=== PATIENT | female | born 1960 | race Caucasian/White ===

== ENCOUNTER 2025-05-16 16:10 | Emergency (ER) | payer BC ==
[~2025-05-16] VITALS: Ht 170.2 cm; Wt 78.5 kg
--- NOTE | 2025-05-16 16:23 | ERN ---
ED Note History of Present Illness Stated Complaint: LACERATION TO LEFT INDEX FINGER Chief Complaint: Laceration/Avulsion Time Seen by MD: 16:15 Dictation: PATIENT IS A 65-YEAR-OLD FEMALE HERE WITH A COMPLAINT OF A LACERATION/PARTIAL AMPUTATION OF HER DISTAL LEFT 2ND FINGER WITH A WEDGE. SHE STATES THE WINCH CHAIN SNAP AND CAUGHT HER FINGER. PALMAR ASPECT OF DISTAL LEFT 2ND FINGER IS COMPLETELY AVULSED OFF WITH FINGERNAIL REMAINING. LAST TETANUS SHOT IS UNKNOWN. SHE DOES NOT HAVE A HISTORY OF ANTIBIOTIC ALLERGIES. NO ACTIVE BLEEDING Allergies: Coded Allergies: No Known Drug Allergies (Unverified Allergy, Unknown, 05/16/25) Past Medical History Past Medical History: No Pertinent History Surgical History: None History: Not Applicable RN Note Reviewed/Agreed w/PFSH: Yes Review of System Dictation CONSTITUTIONAL: NEGATIVE EXCEPT FOR HPI HEAD/FACE: NEGATIVE EXCEPT FOR HPI EENT: NEGATIVE EXCEPT FOR HPI RESPIRATORY: NEGATIVE EXCEPT FOR HPI GASTROINTESTINAL/ABDOMINAL: NEGATIVE EXCEPT FOR HPI GENITOURINARY: NEGATIVE EXCEPT FOR HPI MUSCULOSKELETAL: NEGATIVE EXCEPT FOR HPI PARTIAL AVULSION DISTAL LEFT 2ND FINGER NAIL INTACT INTEGUMENTARY: NEGATIVE EXCEPT FOR HPI NEUROLOGICAL/PSYCH: NEGATIVE EXCEPT FOR HPI HEMATOLOGIC/LYMPHATIC: NEGATIVE EXCEPT FOR HPI ALL SYSTEMS NEGATIVE, EXCEPT NOTED ABOVE. 13 POINT REVIEW OF SYSTEMS ASSESSED AND ALL NEGATIVE EXCEPT FOR ABOVE. Initial Vital Sign VS Vital Signs Date Time Temp Pulse Resp B/P (MAP) Pulse Ox O2 Delivery O2 Flow Rate FiO2 05/16/25 16:11 97.9 66 20 136/68 100 Room Air 05/16/25 16:24 0 21 Physical Exam Dictation VITAL SIGNS REVIEWED GENERAL APPEARANCE: ALERT, ORIENTED X 3, N MODERATE ACUTE DISTRESS, WELL DEVELOPED, NOURISHED. HEAD AND FACE: NON-TRAUMATIC. EYES: PERRL, PINK CONJUNCTIVAS, EYELID NO TRAUMA, ANTERIOR CHAMBER WITH ARCUS SENILIS. EARS: PINNAS INTACT AND NO SIGNS OF TRAUMA OR ERYTHEMA EAR CANALS CLEAR AND NO DISCHARGE TM NO ERYTHEMA NOSE: NO DISCHARGE, NO BLEEDING. OROPHARYNX: MOUTH NORMAL, TONGUE PINK, PHARYNX CLEAR,NO ERYTHEMA, TONSILS NO EXUDATES, NO ABSCESSES NOTED, MUCOUS MEMBRANE MOIST NECK: SUPPLE, NON-TENDER, NO THYROMEGALY, NO MASSES, NO JVD, NO BRUITS BREAST:DEFERRED CHEST:NO TENDERNESS, NO CREPITUS, NO PARADOXICAL MOVEMENT, NO RETRACTIONS LUNGS:CLEAR, WELL-VENTILATED, SYMMETRIC, NO RALES, NO WHEEZING, NO RHONCHI, NO STRIDOR, GOOD BREATH SOUNDS BILATERALLY HEART: REGULAR RATE, REGULAR RHYTHM, NO MURMUR, NO GALLOPS VASCULAR: NO PERIPHERAL EDEMA, ABDOMEN: SOFT, POSITIVE BOWEL SOUNDS, NONDISTENDED, NO GUARDING, NONTENDER, NO REBOUND, NO MASSES NO HEPATOMEGALY, NO SPLENOMEGALY, NO PAREKH'S SIGN, NO HERNIAS. RECTAL: DEFERRED GENITAL: DEFERRED NEUROLOGICAL: NORMAL SPEECH, MOTOR FUNCTION INTACT, SENSORY FUNCTION INTACT MUSCULOSKELETAL: NECK NONTENDER, FULL RANGE OF MOTION, BACK NONTENDER, FULL RANG E OF MOTION, EXTREMITIES, COMPLETE AVULSION OF PAD DISTAL LEFT 2ND FINGER. BONE PARTIALLY EXPOSED HOWEVER NOT INVOLVED INTACT MINIMAL BLEEDING LYMPHATIC: DEFERRED Results (Laboratory/Radiology) Laboratory/Radiology LEFT HAND X-RAY DEMONSTRATES NO BONY INVOLVEMENT Labs Reviewed?: Yes ED Course ED Course Orders Procedure Category Date Status Time Hand 3+Vws Lt RAD 05/16/25 Taken 16:18 Saline Lock Iv CPOE 05/16/25 Transmitted 16:18 Cefazolin Sodium PHA 05/16/25 In Process (Ancef) 16:18 Neomy PHA 05/16/25 In Process Sulf/Bacitra/Polymyxin 16:30 Tetanus,Diphtheria PHA 05/16/25 Complete Tox [Adult] (Diphther 16:30 Ketorolac PHA 05/16/25 In Process Tromethamine 30mg/Ml 16:30 Morphine 2mg Syg PHA 05/16/25 Complete (Morphine 2mg Syg) 16:30 Ondansetron 4mg Inj PHA 05/16/25 In Process (Zofran 4mg Inj) 16:30 Lidocaine Hcl 1% 20ml PHA 05/16/25 In Process Vial (Lidocaine Hc 16:30 Morphine 4mg Syg PHA 05/16/25 In Process (Morphine 4mg Syg) 17:00 Current Medications Medications (Trade) Dose Ordered Sig/Balaji Route PRN Reason Start Time Stop Time Status Last Admin Dose Admin Cefazolin Sodium (Ancef) 2 gm ONCE IVPB 05/16/25 16:18 05/16/25 20:30 05/16/25 16:48 Ketorolac Tromethamine (toRADol) 30 mg ONCE IVP 05/16/25 16:30 05/16/25 20:30 05/16/25 16:46 Lidocaine HCl (Lidocaine HCl 1% 20ml Vial) 10 ml ONCE INJ 05/16/25 16:30 06/15/25 16:29 05/16/25 16:46 Morphine Sulfate (morPHINE 2MG SYG) 2 mg ONCE IVP 05/16/25 16:30 05/16/25 16:45 DC Morphine Sulfate (morPHINE 4MG SYG) 4 mg ONCE IVP 05/16/25 17:00 05/16/25 21:00 05/16/25 16:51 Neomycin/ Polymyxin/ Bacitracin (Triple Antibiotic Ointment) 1 appl ONCE TP 05/16/25 16:30 05/16/25 20:30 05/16/25 16:49 Ondansetron HCl (zoFRAN 4MG INJ) 4 mg ONCE IVP 05/16/25 16:30 05/16/25 20:30 05/16/25 16:46 Tetanus/ Diphtheria Toxoids Adsorbed (DiphthERIA-teTANUS TOXOID [ADULT]/ DECAVAC) 0.5 ml ONCE ONCE IM 05/16/25 16:30 05/16/25 16:32 DC 05/16/25 16:52 Vital Signs Date Time Temp Pulse Resp B/P (MAP) Pulse Ox O2 Delivery O2 Flow Rate FiO2 05/16/25 16:24 98.4 72 18 118/64 100 Room Air* 0 21 05/16/25 16:11 97.9 66 20 136/68 100 Room Air Medical Decision Making MDM MEDICAL DECISION-MAKING BASED ON HPI, PHYSICAL ASSESSMENT X-RAY LEFT HAND PERFORMED TO RULE OUT OPEN FRACTURE, NO BONY INVOLVEMENT ON X- RAY TETANUS SHOT WAS UPDATED 2 G ANCEF WAS LOADED IV WOUND WAS SUTURED TO [place] CAPILLARY BED NO ACTIVE BLEEDING ON DISCHARGE PATIENT GIVEN WOUND CARE INSTRUCTIONS Procedure Procedure Dictation: 1715/PROCEDURE EXPLAINED TO PATIENT SHE AGREED TO PROCEED MIDDLE PHALANX OF LEFT 2ND FINGER PREPPED ASEPTICALLY WITH BETADINE USED2 ML 1% LIDOCAINE PLAIN FOR DIGITAL ANESTHETIC AVULSED SKIN WAS CLEANSED THOROUGHLY WITH THE WOUND CLEANSER APPROXIMATE 30 MEALS 2 SIMPLE INTERRUPTED 3-0 PROLENE SUTURES PLACED TO COMPRESS BLEEDING TISSUE THIS WAS DONE TO COMPRESS THE CAPILLARY BEDS ONLY, THERE WAS NO REPAIR POSSIBLE. PATIENT TOLERATED WELL DX & DISP Disposition: Discharge Departure Impression: Primary Impression: Avulsion of skin of index finger Condition: Stable Scripts Acetaminophen with Codeine (Acetaminophen-Cod #3 Tablet) 300 Mg-30 Mg Tablet 1 TAB PO Q4H PRN for MODERATE TO SEVERE PAIN, #15 TAB 0 Refills Prov: FIDELUIS ENRIQUEESTELAP 05/16/25 Cephalexin (Cephalexin) 500 Mg Tablet 1 TAB PO TID for 10 Days, #30 TAB 0 Refills Prov: CONRADOESTELA NEALP 05/16/25 Additional Instructions: Follow-up with primary care provider in 1 to 2 days. Take medications as dire cted here in the emergency room. Okay to continue home medications unless otherwise discussed during your visit in the emergency room today. Return to your nearest emergency room if symptoms worsen or if there is no improvement. Call 911 if you need immediate assistance. Take Tylenol or Motrin [id number] as needed and if no contraindications are present. Increase oral hydration. A wound culture or urine culture was ordered here in the emergency room department please follow-up with primary care provider and advise them to get repeat ports from our facility. If you had any Jorge wrap/splints that were applied here, please do not remove them until you see your primary care or specialty. Keep wound clean and dry. Apply triple antibiotic ointment/[id number] with a dressing 3 times a day for five days. Take antibiotics as directed until gone. See your primary care doctor on Sunday for follow up and management Referrals: ANDREW REDD MD (PCP) Time of Disposition: 17:18 I have reviewed the case, and I agree with, Diagnosis and Plan ESTELA CAMPP May 16, 2025 16:23
[2025-05-16] MEDS: LIDOCAINE HCL 1% 20 ML VIAL INJ SCH (16:46)
[2025-05-16] MEDS: NEOMY SULF/BACITRA/POLYMYXIN B 1 EACH PACKET TP SCH (16:49)
[2025-05-16] MEDS ORDERED: ACET-2079 PO (17:22)
[2025-05-16] MEDS ORDERED: CEPH500T PO (17:22)
--- NOTE | 2025-05-16 17:43 | HMCIMG ---
STUDY CR left hand, 3 or more views. HISTORY Amputation of left second finger. TECHNIQUE Multiview radiographic examination of the left hand. COMPARISON None provided. FINDINGS Bones Cortical discontinuity at the distal phalanx of the left second finger compatible with prior distal amputation. No acute fracture or aggressive-appearing osseous lesion is identified elsewhere in the hand. Joints No dislocation. Joint spaces are preserved. Soft tissues Tapering of the soft tissues at the distal aspect of the left second finger in keeping with amputation changes. No radiopaque foreign body is seen. IMPRESSION * Radiographic appearance consistent with distal amputation of the left second finger, with cortical discontinuity of the distal phalanx and associated soft tissue tapering. * No acute fracture or dislocation. /[place]
[2025-05-16 17:57] VITALS: BP 110/65; PULSE 63; RESP 18; TEMP 98.1; O2SAT 99
== END 2025-05-16 17:59 | disposition home or self-care (01) ==
LOC: EDH 16:10
DX: S61.211A Laceration without foreign body of left index finger without damage to nail, initial encounter (principal); W26.8XXA Contact with other sharp object(s), not elsewhere classified, initial encounter; Y93.89 Activity, other specified; Y92.89 Other specified places as the place of occurrence of the external cause; Y99.8 Other external cause status
CPT/HCPCS: 99284; 96365; 96375; 90714; 73130; 90471; 12001; J1885; J2405; J2270; J0690